=== PATIENT | male | born 1960 | race Caucasian/White ===

== ENCOUNTER 2019-02-27 22:28 | Emergency (ER) | payer MEDICAID ==
[2019-02-27 23:26] LABS: CHLORIDE,CL 102 mmol/L (98-107); SODIUM,NA 140 mmol/L (136-145)
[2019-02-27 23:27] LABS: ANION GAP 16.5 mmol/L (10-20)
--- NOTE | 2019-02-27 23:40 | EDM.PDOC ---
ED HPI GENERAL MEDICAL PROBLEM - General Chief Complaint: Abdominal Pain Stated Complaint: Abdominal pain Time Seen by Provider: 02/27/19 22:30 Source of Information: Reports: Patient History Limitations: Reports: No Limitations - History of Present Illness INITIAL COMMENTS - FREE TEXT/NARRATIVE: Pt. presents to ER with complaints of diffuse abdominal discomfort. He states that he was inpatient at the [facility] and was discharged yesterday. He states that he lives in [place]. He decided to come to [place] to visit a friend but was not allowed in the apartment. He states that he was trying to sleep in his car and was having difficulty sleeping due to the discomfort. He states that he has had abdominal discomfort for some time and states that it is not worse tonight. He has not had a BM for some time. He states that he is currently not on any PPI. He denies any fever or chills. No chest pain or shortness of breath. No bloody stools. No nausea,vomiting, or diarrhea. Onset: Today Onset Date: 02/27/19 Location: Reports: Abdomen Quality: Reports: Ache Severity: Moderate whole abdomen Pain Score (Numeric/FACES): 10 - Related Data Allergies Allergy/AdvReac Type Severity Reaction Status Date / Time bee venom protein (honey bee) Allergy Anaphylactic Verified 02/27/19 22:43 Shock Home Meds: Home Meds . [Unable to Verify Home Med List] 02/27/19 [History] ED ROS GENERAL - Review of Systems Review Of Systems: See Below Constitutional: Reports: No Symptoms HEENT: Reports: No Symptoms Respiratory: Reports: No Symptoms Cardiovascular: Reports: No Symptoms Endocrine: Reports: No Symptoms GI/Abdominal: Reports: Abdominal Pain. Denies: Black Stool, Bloody Stool, Difficulty Swallowing ED EXAM, GENERAL - Physical Exam Exam: See Below Exam Limited By: No Limitations General Appearance: Alert, WD/WN, No Apparent Distress Eye Exam: Bilateral Eye: EOMI, PERRL Throat/Mouth: Normal Inspection, Normal Lips, Normal Teeth, Normal Gums, Normal Oropharynx, Normal Voice, No Airway Compromise Head: Atraumatic, Normocephalic Neck: Normal Inspection, Supple, Non-Tender, Full Range of Motion Respiratory/Chest: No Respiratory Distress, Lungs Clear, Normal Breath Sounds, No Accessory Muscle Use, Chest Non-Tender Cardiovascular: Normal Peripheral Pulses, Regular Rate, Rhythm, No Edema, No Gallop, No JVD, No Murmur Peripheral Pulses: 4+: Radial (L) GI/Abdominal: Normal Bowel Sounds, Soft, No Organomegaly, No Distention, No Mass , Pelvis Stable, Tender (Male) Exam: Deferred Rectal (Males) Exam: Deferred Back Exam: Normal Inspection, Full Range of Motion Extremities: Normal Inspection, Normal Range of Motion, Non-Tender, No Pedal Edema, Normal Capillary Refill Neurological: Alert, Oriented, CN II-XII Intact, Normal Cognition, Normal Gait, Normal Reflexes, No Motor/Sensory Deficits Psychiatric: Normal Affect, Normal Mood Skin Exam: Warm, Dry, Intact, Normal Color, No Rash Course - Vital Signs Last Recorded V/S: Last Vital Signs Temp 36.4 C 02/27/19 22:30 Pulse 72 02/27/19 22:30 Resp 16 02/27/19 22:30 BP 162/103 H 02/27/19 22:30 Pulse Ox 97 02/27/19 22:30 - Orders/Labs/Meds Orders: Active Orders 24 hr Category Date Time Status Abdomen 2V AP Flat Upright [CR] Stat Exams 02/27/19 23:30 Taken Labs: Laboratory Tests 02/27/19 02/27/19 02/27/19 Range/Units 23:02 23:02 23:02 WBC 8.1 (4.0-10.0) x10^3/uL RBC 4.91 (4.5-6.0) x10^6/uL Hgb 15.2 (14.0-18.0) g/dL Hct 43.2 (40.0-52.0) % MCV 88.0 (78.0-93.0) fL MCH 31.0 (26.0-32.0) pg MCHC 35.2 (32.0-36.0) g/dL RDW Coeff of [place] 14.8 (10.0-15.0) % Plt Count 249 (130-400) x10^3/uL Neut % (Auto) 55.9 (50.0-80.0) % Lymph % (Auto) 32.5 (25.0-50.0) % [place] % (Auto) 10.1 (2.0-11.0) % Eos % (Auto) 1.0 (0.0-4.0) % Baso % (Auto) 0.5 (0.2-1.2) % PT 16.8 H (10.0-12.8) SEC INR 1.5 L (2.0-3.5) Sodium 140 (136-145) mmol/L Potassium 3.5 (3.5-5.1) mmol/L Chloride 102 (98-107) mmol/L Carbon Dioxide 25 (21-32) mmol/L Anion Gap 16.5 (10-20) mmol/L BUN 11 (7-18) mg/dL Creatinine 0.8 (0.70-1.30) mg/dL Est Cr Clr Drug Dosing TNP Estimated GFR (MDRD) > 60 Glucose 142 H (74-106) mg/dL Calcium 9.0 (8.5-10.1) mg/dL Corrected Calcium 9.24 (8.5-10.1) mg/dL Magnesium 2.0 (1.8-2.4) mg/dL Total Bilirubin 0.7 (0.2-1.0) mg/dL AST 51 H (15-37) U/L ALT 241 H (16-63) U/L Alkaline Phosphatase 76 (46-116) U/L C-Reactive Protein 0.3 (<=0.9) mg/dL Total Protein 7.1 (6.4-8.2) g/dL Albumin 3.7 (3.4-5.0) g/dL Globulin 3.4 Albumin/Globulin Ratio 1.09 Amylase 42 (25-115) U/L Lipase 130 (73-393) U/L - Radiology Interpretation Free Text/Narrative:: Non-specific bowel gas pattern, no air fluid levels or free air. Moderate stool. Departure - Departure Time of Disposition: 00:00 Disposition: Home, Self-Care 01 Clinical Impression: Constipation - Discharge Information Instructions: Constipation, Adult Referrals: PCP,None [Primary Care Provider] - Forms: ED Department Discharge Additional Instructions: Home to rest. Increase intake of water. Miralax 1 capful once daily Milk of mag 60ml once daily to help with having a bowel movement. Recheck in clinic in 10-14 days Sepsis Event Note - Evaluation Sepsis Screening Result: No Definite Risk - Focused Exam Vital Signs: Vital Signs Temp Pulse Resp BP Pulse Ox 02/27/19 22:30 36.4 C 72 16 162/103 H 97 Date Exam was Performed: 02/28/19 Time Exam was Performed: 00:39 - My Orders Last 24 Hours: My Active Orders 02/27/19 23:30 Abdomen 2V AP Flat Upright [CR] Stat - Assessment/Plan Last 24 Hours: My Active Orders 02/27/19 23:30 Abdomen 2V AP Flat Upright [CR] Stat Plan: Home to rest. Increase intake of water. Miralax 1 capful once daily Milk of mag 60ml once daily to help with having a bowel movement. Recheck in clinic in 10-14 days
--- NOTE | 2019-02-28 08:17 | CR ---
[id number] RAD/RAD Abd Flat and Upright 2V EXAM: RAD Abd Flat and Upright 2V INDICATION: ABDOMINAL PAIN. COMPARISON: None. DISCUSSION: Unobstructed bowel gas pattern. No radiographically evident pneumoperitoneum. Punctate vascular calcifications project over the pelvis. IMPRESSION: No acute findings in the abdomen. Tomi Kim MD 02/28/19 0816 Thank you for allowing us to participate in the care of your patient.
== END 2019-02-28 00:11 | disposition home or self-care (01) ==
LOC: VM.ED 22:28
DX: K59.00 Constipation, unspecified (principal); Z91.030 Bee allergy status
CPT/HCPCS: 36415; 74019; 80053; 82150; 83690; 83735; 85025; 85610; 86140; 99284-25